=== PATIENT | male | born 1995 | race African-American/Black ===

== ENCOUNTER 2021-02-20 16:47 | Emergency (ER) | payer OTHER, SELFPAY ==
[2021-02-20 17:09] VITALS: BP 116/75; PULSE 60; RESP 16; TEMP 36.8; O2SAT 100; BMI 26.6
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
[2021-02-20] MEDS: Penicillin G Benzathine 2,400,000 UNIT/4 ML SYRINGE 2400000 UNIT IM (20:10)
[2021-02-20 20:11] LABS: Glucose Urine UA NEG (NEG); Leukocyte Esterase Urine NEG (NEG); Nitrite Urine NEG (NEG); PH 7.5 (5.0-8.0); UACC Culture Trigger NO; Urine Blood TRACE (NEG); Urine Ketones NEG (NEG); Urine Protein TRACE MG/DL (NEG-TRACE)
[2021-02-20] MEDS: Azithromycin 500 MG TABLET 1000 MG PO (20:11)
[2021-02-20] MEDS: cefTRIAXone sodium 500 MG, Lidocaine HCl 1 % MPF 1 ML IM (20:11)
[2021-02-20 20:12] LABS: Appearance Urine HAZY; Color Urine YELLOW
[2021-02-20 20:21] LABS: Bacteria Urine TRACE /LPF; Mucus Urine TRACE /LPF; WBC Urine 0 /HPF (0-4)
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
[2021-02-21 11:51] LABS: CT PCR NOT DETECTED (Not Detect.); NG PCR NOT DETECTED (Not Detect.)
== END 2021-02-20 20:58 | disposition home or self-care (01) ==
PROVIDERS: Emergency Provider Emergency Medicine Emergency Medical Services
DX: Z11.3 Encounter for screening for infections with a predominantly sexual mode of transmission (principal)
CPT/HCPCS: 81001; 87491; 87591; 96372; 99284; J0561; J0696

== ENCOUNTER 2024-03-27 12:25 | Emergency (ER) | payer OTHER, SELFPAY ==
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
[2024-03-27 12:28] VITALS: BP 121/79; PULSE 72; RESP 16; TEMP 36.6; O2SAT 99; BMI 28.4
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
[2024-03-27] MEDS: Bacitracin Oint 0.9 GM PACKET 1 APPL TOPICAL (14:25)
[2024-03-27 14:34] VITALS: BP 121/79; PULSE 72; RESP 16; TEMP 36.6; O2SAT 99
== END 2024-03-27 14:35 | disposition home or self-care (01) ==
PROVIDERS: Emergency Provider Emergency Medicine
DX: S63.502A Unspecified sprain of left wrist, initial encounter (principal); Y04.2XXA Assault by strike against or bumped into by another person, initial encounter; Y93.89 Activity, other specified; Y92.9 Unspecified place or not applicable; Y99.9 Unspecified external cause status
CPT/HCPCS: 73110; 73130; 99283

== ENCOUNTER 2024-12-02 17:45 | Emergency (ER) | payer OTHER, SELFPAY ==
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
[2024-12-02 17:55] VITALS: PULSE 72; RESP 18; TEMP 36.6; O2SAT 98; BMI 26.3
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
[2024-12-02 22:25] VITALS: BP 125/69; PULSE 75; RESP 15; TEMP 37.6; O2SAT 100
--- OUTSIDE RECORDS SUMMARY | 2024-12-02 22:37 | XMS_ITS | Clinical Summary ---
Author Organization [address] Address [address] [place] [address] Phone Care Team Providers Care Assembler [employer] Name Role Phone Mark Manning MD Primary Care Provider Allergies No known active allergies Medications albuterol HFA (PROAIR HFA ; PROVENTIL HFA ; VENTOLIN HFA) 90 mcg/actuation inhaler 08/21/19 15 Active omeprazole (PriLOSEC) [address] capsule Take 1 capsule (20 mg total) by mouth 1 (one) time each day. Do not crush or chew. 90 capsule 1 10/16/19 25 Active cloNIDine (CATAPRES) 0.1 mg tablet From psychiatrist 10/25/19 25 Active PARoxetine (PAXIL) 20 mg tablet From psychiatrist 11/21/19 25 Active PARoxetine (PAXIL) 20 mg tablet Take 1 tablet (20 mg total) by mouth 1 (one) time each day. 10/25/19 25 025 Discontinued Active Problems Problem Noted Date Diagnosed Date Acne 09/30/2013 Exercise-induced asthma 09/30/2013 Knee pain 09/30/2013 Overview (06/06/2024): Seen by Mr Rojas, ortho - dx PF syndrome Tooth abscess 09/30/2013 Encounters Date Type Department Care Team Description 11/20/2024 10:00 AM EDT Office Visit Adult Medicine [facility] [address] [place] [address] Farida Miranda PA Anxiety and depression (Primary Dx) 11/01/2024 Telephone Adult Medicine [address] [phone] Farida Miranda PA Forms/questionnaires 10/15/2024 11:30 AM EDT Office Visit Adult Medicine [address] [phone] Farida Miranda PA Adult general medical examination (Primary Dx); Urine discoloration; Gastroesophageal reflux disease without esophagitis; Screening for diabetes mellitus; Screening cholesterol level; Need for hepatitis C screening test; Need for vaccination against Streptococcus pneumoniae from Last 3 Months Immunizations Name Administration Dates Next Due Pneumococcal conjugate 20 va lent (Prevnar 20, PCV 20) 2mo and older 10/15/2024 Family History Relation Name Status Comments Maternal Grandfather Alive Maternal Grandmother Alive Mother Alive Paternal Grandfather Alive Paternal Grandmother Alive Sister 1 Alive Sister 2 Alive Sister 3 Alive Sister 4 Alive Social History Tobacco Use Types Packs/Day Years Used Date Smoking Tobacco: Former Cigarettes Smokeless Tobacco: Never Alcohol Use Standard Drinks/Week Comments Yes 0 (1 standard drink = 0.6 oz pur e alcohol) Sex and Gender Information Value Date Recorded Sex Assigned at Not on file Legal Sex Male 10:29 PM EST Gender Identity Not on file Sexual Orientation Not on file Obstetrics History Last Filed Vital Signs Vital Sign Reading Time Taken Comments Blood Pressure 111/64 11/20/2024 10:00 AM EDT Pulse 70 11/20/2024 10:00 AM EDT Temperature 36.8 ??C (98.3 ??F) 11/20/2024 10:00 AM E DT Respiratory Rate 18 11/20/2024 10:00 AM EDT Oxygen Saturation - - Inhaled Oxygen Concentration - - Weight 73.5 kg (162 lb) 11/20/2024 10:00 AM EDT Height 167.6 cm (5' 6 ) 11/20/2024 10:00 AM EDT Body Mass Index 26.15 11/20/2024 10:00 AM EDT Plan of Treatment Upcoming Encounters Date Type Department Care Team (Late st Contact Info) Description 02/21/2025 9:00 AM EDT Office Visit Adult Medicine [address] [phone] Mark Manning MD [address] [place] [id number] Health Maintenance Due Date Last Done Comments Hepatitis B Vaccines (1 of 3 - 19+ 3-dose series) 2016 Depression Screening 05/29/2022 HIV Screening 05/29/2022 Hepatitis C Screening 05/29/2022 Social Influencers of Health Screening 05/29/2022 COVID-19 Vaccine (2023-2 5 season) 2024 Influenza Vaccine (Season Ended) 2025 DTaP,Tdap,and Td Vaccines (3 - Td or Tdap) 05/15/2030 05/15/2020, 12/04/2015 Hepatitis A Vaccines Aged Out 07/26/2024 No long er eligible based on patient's age to complete this topic Pneumococcal Vaccine: Pediatrics (0 to 5 Years) and At-Risk Patients (6 to 64 Years) Completed 10/15/2024 HIB Vaccines Aged Out No longer eligi ble based on patient's age to complete this topic HPV Vaccines Aged Out No longer eligi ble based on patient's age to complete this topic IPV Vaccines Aged Out No longer eligi ble based on patient's age to complete this topic MMR Vaccines Aged Out No longer eligi ble based on patient's age to complete this topic Meningococcal ACWY Vaccine Aged Out N o longer eligible based on patient's age to complete this topic Meningococcal B Vaccine Aged Out No l onger eligible based on patient's age to complete this topic RSV Immunization Patients Under 20 months Aged Out No longer eligible b ased on patient's age to complete this topic Varicella Vaccines Aged Out No longer eligible based on patient's age to complete this topic Insurance [facility] Care 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
[2024-12-02] MEDS: ondansetron HCL 4 MG/2 ML VIAL IVPUSH (22:53)
[2024-12-02] MEDS: ceFAZolin Sodium/Dextrose,Iso 2 GM/50 ML PIGGYBACK IV (22:53)
[2024-12-02] MEDS: HYDROmorphone HCl 1 MG/ML SYRINGE IVPUSH (22:53)
[2024-12-02] MEDS: 0.9 % Sodium Chloride 1,000 ML 999 ML IV (22:53)
[2024-12-02 23:23] VITALS: RESP 15
--- NOTE | 2024-12-03 01:00 | PC.NURSE ---
tactile stimuli to wake pt up, reports 8/10 pain however quickly falls asleep mid conversation. held off on ivp med at this time.
[2024-12-03] MEDS: 0.9 % Sodium Chloride 1,000 ML 999 ML IV (01:31)
[2024-12-03 01:32] VITALS: BP 121/73; PULSE 57; RESP 16; TEMP 37; O2SAT 99
[2024-12-03 01:37] LABS: Basophils Percent Auto 0.2 % (0-2); Eosinophils Absolute Auto 0.1 X10*3/uL (0.0-0.4); Eosinophils Percent Auto 0.4 % (0-4); Hematocrit 37.7 % (42.0-52.0); Hemoglobin 13.4 g/dl (14.0-18.0); Imm Gran Abs Auto 0.08 X10*3/uL (0.00-0.03); Imm Gran Pct Auto 0.4 % (0.0-0.4); Lymphocytes Absolute Auto 3.1 X10*3/uL (1.2-4.9); Lymphocytes Percent Auto 17.1 % (20-40); MANUAL DIFF FLAG NO; Mean Corpuscular HGB Conc 35.5 g/dl (31.0-36.0); Mean Corpuscular Hemoglobin 32.8 pg (27.0-33.0); Mean Corpuscular Volume 92.4 fL (80.0-98.0); Mean Platelet Volume 9.7 fL (9.4-12.4); Monocytes Absolute Auto 0.8 X10*3/uL (0.1-1.2); Monocytes Percent Auto 4.6 % (2-11); Neutrophils Absolute Auto 14.1 x10*3/uL (2.0-8.3); Neutrophils Percent Auto 77.3 % (45-73); Platelet Count 192 X10*3/uL (160-400); Red Blood Count 4.08 X10*6/uL (4.60-5.80); Red Cell Distribution Width 11.6 % (11.0-16.0); White Blood Count 18.2 X10*3/uL (4.8-10.8)
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
[2024-12-03 01:54] LABS: Anion Gap 13 (12-20); Blood Urea Nitrogen 10 mg/dL (9-16); Calcium 8.5 mg/dL (8.4-10.2); Carbon Dioxide 26 mmol/L (22-29); Chloride 107 mmol/L (96-108); Creatinine Clr Calc Pharmacy 145.1; Estimated Glomerular Filt Rate > 60; Glucose Random 97 mg/dL (60-115); Potassium 3.9 mmol/L (3.3-5.1); Sodium 142 mmol/L (135-145)
[2024-12-03] MEDS: HYDROmorphone HCl 1 MG/ML SYRINGE IVPUSH (02:08)
--- NOTE | 2024-12-03 02:12 | PC.NURSE ---
pt mom at bedside now, able to speak to pt and assisting in getting pt into hospital attire currently. pt medicated per aug.
--- NOTE | 2024-12-03 02:19 | PC.NURSE ---
report given to Scott SHABAZZ at [facility].
[2024-12-03 02:49] VITALS: BP 121/73; PULSE 57; RESP 16; TEMP 37; O2SAT 99
== END 2024-12-03 02:38 | disposition short-term general hospital (02) ==
PROVIDERS: Physician Assistant Medical; Emergency Provider Emergency Medicine
DX: S02.602A Fracture of unspecified part of body of left mandible, initial encounter for closed fracture (principal); V43.52XA Car driver injured in collision with other type car in traffic accident, initial encounter; Y93.89 Activity, other specified; Y92.414 Local residential or business street as the place of occurrence of the external cause; Y99.9 Unspecified external cause status
CPT/HCPCS: 36415; 70450; 70486; 71045; 71260; 72125; 73502; 73562; 73610; 74177; 80048; 85025; 96361; 96374; 96375; 96376; 99285; J0690; J1171; J2405

== ENCOUNTER → 2024-12-02 17:57 | Outpatient (BNV) | payer OTHER, SELFPAY | PROVIDERS: Visit Provider Radiology Diagnostic Radiology | DX: R07.89 Other chest pain (principal); S02.602A Fracture of unspecified part of body of left mandible, initial encounter for closed fracture; G44.309 Post-traumatic headache, unspecified, not intractable | CPT/HCPCS: 70450; 70486; 71045; 72125 ==

== ENCOUNTER → 2024-12-03 00:44 | Outpatient (BNV) | payer OTHER, SELFPAY | PROVIDERS: Emergency Provider Emergency Medicine; Visit Provider Radiology Diagnostic Radiology | DX: M62.58 Muscle wasting and atrophy, not elsewhere classified, other site (principal); S29.9XXA Unspecified injury of thorax, initial encounter | CPT/HCPCS: 71260; 74177 ==